=== PATIENT | female | born 1980 | race Caucasian/White ===

== ENCOUNTER 2016-12-16 14:07 | Emergency (ER) | payer SELFPAY ==
[~2016-12-16 14:07] MED LIST: AMITIZA24 MCG PO; CELEXA20 MG; CELEXA40 MG PO; CLONAZEPAM1 MG; CLONAZEPAM1 MG PO; DULERA 100 MCG/13 GM IH; METHADONE PO; METHADOSE40 M1 PO; MIRALAX17 GM PO; PEN-VEE K500 MG PO; PRILOSEC40 MG; PROTONIX40 MG PO; TRILEPTAL300 MG; VYVANSE40 MG PO; ZOFRAN ODT4 MG/UDTAB PO; ZOFRAN ODT8 MG/TAB PO
[2016-12-16] MEDS ORDERED: NEXIUM40 M1 PO (14:11)
[2016-12-16 15:04] LABS: ANION GAP 11 mmol/L (0-20); BLOOD UREA NITROGEN 12 mg/dl (6-24); CALCIUM 8.8 mg/dl (8.5-10.5); CARBON DIOXIDE-VENOUS 28 mmol/L (22-32); CHLORIDE 107 mmol/l (96-110); POTASSIUM 4.2 mmol/L (3.7-5.1); SODIUM 142 mmol/L (135-145); eGFR VALUE FOR BLACK >90 mL/Min
[2016-12-16 15:06] LABS: BASO % 0.4 % (0-2); EOS % 2.4 % (0-7); EOSINOPHIL ABSOLUTE COUNT 0.2 tho/cmm (0.0-0.7); GLUCOSE 69 mg/dL (70-110); HCT-HEMATOCRIT 42.9 % (34.0-49.0); HGB-HEMOGLOBIN 13.9 gm/dl (12.0-15.5); IMMATURE GRANULOCYTES ABSOLUTE 0.02 tho/cmm (0-0.03); IMMATURE GRANULOCYTES PERCENT 0.2 % (0-0.3); LYMPH ABSOLUTE COUNT 2.2 tho/cmm (0.8-4.5); MCH (MEAN CORPUSCULAR HGB) 27.1 pg (28.0-32.0); MCHC MEAN CORPUSCULAR HGB CONC 32.4 % (32.0-36.0); MCV (MEAN CELL VOLUME) 83.6 fl (82.0-96.0); MEAN PLATELET VOLUME 11.2 cmc (9.4-12.4); MONO % 6.1 % (0-12); MONOCYTE ABSOLUTE COUNT 0.6 tho/cmm (0.0-1.2); NEUTROPHIL ABSOLUTE COUNT 6.4 tho/cmm (1.6-8.0); NEUTROPHIL-AUTOMATED 6.4 tho/cmm (1.6-8.0); NEUTROPHILS % 67.9 % (40-80); PLATELET COUNT 246 tho/cmm (150-450); PREGNANCY-SERUM NEGATIVE (NEGATIVE); RED BLOOD COUNT 5.13 mil/cmm (4.00-5.20); RED CELL DISTRIBUTION WIDTH 15.1 % (12.4-16.4); WHITE BLOOD COUNT 9.4 tho/cmm (4.0-10.0)
[2016-12-16] MEDS ORDERED: PREDNISONE10 M1 PO (15:26)
[2016-12-16] MEDS ORDERED: NORCO 5-325 TA1 EACH PO (15:26)
[2017-03-10] MEDS ORDERED: BACTRIM DS TAB1 EAC2 PO (07:26)
== END 2016-12-16 15:58 ==
LOC: EDMED 14:07
PROVIDERS: Emergency Medicine
DX: R07.89 Other chest pain (principal); R09.1 Pleurisy; J45.909 Unspecified asthma, uncomplicated; K21.9 Gastro-esophageal reflux disease without esophagitis; Z79.899 Other long term (current) drug therapy; F17.200 Nicotine dependence, unspecified, uncomplicated
CPT/HCPCS: J1885; J7030